=== PATIENT | male | born 2000 | race African-American/Black ===

== ENCOUNTER 2023-03-13 00:35 | Emergency (ER) | payer SELFPAY ==
[2023-03-13 01:20] LABS: Absolute Lymphocytes (CBC) 3.8 K/uL (0.7-4.9); Hematocrit 38.3 % (39.6-49.0); Lymphocytes % 48.9 % (15.3-44.8); MCV 83.6 fL (80-100); MPV 8.5 fL (7.6-11.3); RBC Red Blood Cell Count 4.58 M/uL (4.33-5.43)
[2023-03-13] MEDS ORDERED: NA CHLORIDE 0.9% 1,000 ML ONE (01:23)
[2023-03-13 01:36] LABS: Potassium 3.4 mEq/L (3.5-5.1); Troponin High Sensitivity 3.7 pg/mL (<58.9)
--- NOTE | 2023-03-13 04:52 | ER ---
Nurse's Notes [facility] Name: Iam Connolly Age: 22 yrs Sex: Male : 2000 Arrival Date: 03/13/2023 Time: 00:35 Bed 2 Private MD: Diagnosis: Chest pain, unspecified Presentation: 03/13 00:51 Chief complaint: Patient states: I work all day in the heat and today around noon I vc1 started having chest pain and ever since my chest has been tight. When I was laying down I started feeling short of breath and like I was going to pass out. Coronavirus screen: Vaccine status: Patient reports receiving the 2nd dose of the covid vaccine. [employer] Client denies travel out of the [place] in the last 14 days. At this time, the client does not indicate any symptoms associated with coronavirus-19. Ebola Screen: Patient negative for fever greater than or equal to 101.5 degrees Fahrenheit, and additional compatible Ebola Virus Disease symptoms Patient denies exposure to infectious person. Patient denies travel to an Ebola-affected area in the 21 days before illness onset. No symptoms or risks identified at this time. Initial Sepsis Screen: Does the patient meet any 2 criteria? No. Patient's initial sepsis screen is negative. Does the patient have a suspected source of infection? No. Patient's initial sepsis screen is negative. Risk Assessment: Do you want to hurt yourself or someone else? Patient reports no desire to harm self or others. Onset of symptoms was March 12, 2023 at 12:00. 00:51 Method Of Arrival: Ambulatory vc1 00:51 Acuity: JEWELS 3 vc1 Triage Assessment: 00:55 General: Appears in no apparent distress. uncomfortable, Behavior is calm, cooperative, vc1 appropriate for age. Pain: Complains of pain in chest Pain does not radiate. Pain currently is 8 out of 10 on a pain scale. Quality of pain is described as heavy, sharp, Pain began noon Is continuous. EENT: No deficits noted. No signs and/or symptoms were reported regarding the EENT system. Neuro: Level of Consciousness is awake, alert, obeys commands, Oriented to person, place, time, situation, Appropriate for age. Cardiovascular: Chest pain is described as severe, quality is heaviness, sharp. Respiratory: Reports shortness of breath Airway is patent Respiratory effort is even, unlabored, Respiratory pattern is regular, symmetrical. GI: No deficits noted. No signs and/or symptoms were reported involving the gastrointestinal system. : No deficits noted. No signs and/or symptoms were reported regarding the genitourinary system. Derm: No deficits noted. No signs and/or symptoms reported regarding the dermatologic system. Musculoskeletal: No deficits noted. No signs and/or symptoms reported regarding the musculoskeletal system. Historical: - Allergies: 00:54 No Known Allergies; vc1 - Home Meds: 00:54 None [Active]; vc1 - PMHx: 00:54 None; vc1 - PSHx: 00:54 None; vc1 - Immunization history:: Client reports receiving the 2nd dose of the Covid vaccine. - Social history:: Smoking status: Patient denies any tobacco usage or history of. Screenin:00 [facility] ED Fall Risk Assessment (Adult) History of falling in the last 3 months, jb4 including since admission No falls in past 3 months (0 pts) Confusion or Disorientation No (0 pts) Score/Fall Risk Level 0 - 2 = Low Risk. Abuse screen: Denies threats or abuse. Nutritional screening: No deficits noted. Tuberculosis screening: No symptoms or risk factors identified. Assessment: 01:00 General: Appears in no apparent distress. comfortable, Behavior is calm, cooperative, jb4 appropriate for age. Pain: Denies pain. Neuro: Level of Consciousness is awake, alert, obeys commands, Oriented to person, place, time, situation. Cardiovascular: Patient's skin is warm and dry. Respiratory: Airway is patent Respiratory effort is even, unlabored, Respiratory pattern is regular, symmetrical. GI: No signs and/or symptoms were reported involving the gastrointestinal system. : No signs and/or symptoms were reported regarding the genitourinary system. EENT: No signs and/or symptoms were reported regarding the EENT system. Derm: Skin is intact, Skin is pink, warm \T\ dry. Musculoskeletal: Circulation, motion, and sensation intact. Range of motion: intact in all extremities. 01:41 Reassessment: Patient appears in no apparent distress at this time. Patient and/or jb4 family updated on plan of care and expected duration. Pain level reassessed. Patient is alert, oriented x 3, equal unlabored respirations, skin warm/dry/pink. 03:24 Reassessment: Patient appears in no apparent distress at this time. Patient and/or jb4 family updated on plan of care and expected duration. Pain level reassessed. Patient is alert, oriented x 3, equal unlabored respirations, skin warm/dry/pink. 05:00 Reassessment: Patient appears in no apparent distress at this time. Patient and/or jb4 family updated on plan of care and expected duration. Pain level reassessed. Patient is alert, oriented x 3, equal unlabored respirations, skin warm/dry/pink. Vital Signs: 00:51 BP 159 / 100; Pulse 71; Resp 10; Pulse Ox 100% ; Weight 74.84 kg; Height 5 ft. 10 in. ; vc1 Pain 8/10; 01:41 BP 155 / 80; Pulse 72; Resp 16; Pulse Ox 100% on R/A; jb4 03:24 BP 135 / 61; Pulse 60; Resp 17; Pulse Ox 99% on R/A; jb4 04:45 BP 150 / 83; Pulse 65; Resp 16; Pulse Ox 100% on R/A; jb4 00:51 Body Mass Index 23.67 (74.84 kg, 177.8 cm) vc1 00:51 Pain Scale: Adult vc1 ED Course: 00:38 Patient arrived in ED. vc1 00:38 Gurinder Ruelas PA is PHCP. cp 00:38 Navin Stearns MD is Attending Physician. cp 00:54 Triage completed. vc1 00:55 Arm band placed on right wrist. vc1 01:00 Elver Velasquez, RN is Primary Nurse. jb4 01:30 XRAY Chest (1 view) In Process Unspecified. EDMS 02:55 CT Chest For PE Angio In Process Unspecified. EDMS 05:00 Patient has correct armband on for positive identification. Bed in low position. Call jb4 light in reach. Side rails up X 1. Client placed on continuous cardiac and pulse oximetry monitoring. NIBP monitoring applied. automotive maintenance technician on. 05:00 No provider procedures requiring assistance completed. IV discontinued, intact, jb4 bleeding controlled, No redness/swelling at site. Pressure dressing applied. Administered Medications: 01:19 Drug: NS 0.9% IV 1000 ml Route: IV; Rate: 1 bolus; Site: right antecubital; jb4 03:30 Not Given (Patient Refused): Ketorolac IVP 15 mg IVP once jb4 Outcome: 04:52 Discharge ordered by . rt 05:00 Discharged to home ambulatory. jb4 05:00 Condition: stable 05:00 Discharge instructions given to patient, Instructed on discharge instructions, follow up and referral plans. Demonstrated understanding of instructions, follow-up care. 05:48 Patient left the ED. jb4 Signatures: Dispatcher [employer] EDMS Gurinder Ruelas PA PA cp Bryson, James, RN RN jb4 Diandra Trejo RN RN vc1 Navin Stearns MD MD rt
--- NOTE | 2023-03-13 04:52 | EDPHYS ---
Physician Documentation [facility] Name: Iam Connolly Age: 22 yrs Sex: Male : 2000 Arrival Date: 03/13/2023 Time: 00:35 Bed 2 Private MD: ED Physician Navin Stearns HPI: 03/13 00:55 This 22 yrs old Male presents to ER via Ambulatory with complaints of Chest Pain, SOB, cp Near-syncope. 00:55 The patient or guardian reports chest pain that is located primarily in the anterior cp chest wall. The pain does not radiate. Associated signs and symptoms: Pertinent positives: near-syncope, shortness of breath. The chest pain is described as a pressure. Duration: The patient or guardian reports a single episode, that is still ongoing, and worsening, started about noon yesterday. Historical: - Allergies: 00:54 No Known Allergies; vc1 - Home Meds: 00:54 None [Active]; vc1 - PMHx: 00:54 None; vc1 - PSHx: 00:54 None; vc1 - Immunization history:: Client reports receiving the 2nd dose of the Covid vaccine. - Social history:: Smoking status: Patient denies any tobacco usage or history of. ROS: 01:00 Constitutional: Negative for body aches, chills, fever, poor PO intake. cp 01:00 Eyes: Negative for injury, pain, redness, and discharge. cp 01:00 ENT: Negative for drainage from ear(s), ear pain, sore throat, difficulty swallowing, difficulty handling secretions. 01:00 Cardiovascular: Positive for chest pain, Negative for edema, palpitations. 01:00 Respiratory: Positive for shortness of breath, Negative for cough, wheezing. 01:00 Abdomen/GI: Negative for abdominal pain, nausea, vomiting, and diarrhea. 01:00 Back: Negative for pain at rest, pain with movement. 01:00 Neuro: Positive for near syncope, Negative for altered mental status, dizziness, headache, weakness. 01:00 All other systems are negative. Exam: 01:05 Constitutional: The patient appears in no acute distress, alert, awake, cp non-diaphoretic, non-toxic, well developed, well nourished, uncomfortable. 01:05 Head/Face: Normocephalic, atraumatic. cp 01:05 Eyes: Periorbital structures: appear normal, Conjunctiva: normal, no exudate, no injection, Sclera: no appreciated abnormality, Lids and lashes: appear normal, bilaterally. 01:05 ENT: External ear(s): are unremarkable, Nose: is normal, Mouth: Lips: moist, Oral mucosa: pink and intact, moist, Posterior pharynx: is normal, airway is patent, no erythema, no exudate. 01:05 Chest/axilla: Inspection: normal, Palpation: is normal, no crepitus, no tenderness. 01:05 Cardiovascular: Rate: normal, Rhythm: regular, Pulses: Pulses are 2+ in right radial artery and left radial artery. Heart sounds: murmur, not appreciated, Edema: is not appreciated. 01:05 Respiratory: the patient does not display signs of respiratory distress, Respirations: normal, no use of accessory muscles, no retractions, labored breathing, is not present, Breath sounds: are clear throughout, no decreased breath sounds, no stridor, no wheezing. 01:05 Abdomen/GI: Inspection: abdomen appears normal, Palpation: abdomen is soft and non-tender, in all quadrants. 01:05 Neuro: Orientation: to person, place \T\ time. Mentation: is normal, Motor: moves all fours, strength is normal, Sensation: is normal. Vital Signs: 00:51 BP 159 / 100; Pulse 71; Resp 10; Pulse Ox 100% ; Weight 74.84 kg; Height 5 ft. 10 in. ; vc1 Pain 8/10; 01:41 BP 155 / 80; Pulse 72; Resp 16; Pulse Ox 100% on R/A; jb4 03:24 BP 135 / 61; Pulse 60; Resp 17; Pulse Ox 99% on R/A; jb4 04:45 BP 150 / 83; Pulse 65; Resp 16; Pulse Ox 100% on R/A; jb4 00:51 Body Mass Index 23.67 (74.84 kg, 177.8 cm) vc1 00:51 Pain Scale: Adult vc1 MDM: 00:39 Patient medically screened. 03/13 00:52 Order name: Basic Metabolic Panel; Complete Time: 01:44 cp 03/13 01:44 Interpretation: Normal except: K 3.4; GLUC 140. 03/13 00:52 Order name: CBC with Diff; Complete Time: 01:44 cp 03/13 01:45 Interpretation: Normal except: HGB 12.5; HCT 38.3; CAMPBELL% 40.3; LYM% 48.9. cp 03/13 00:52 Order name: D-Dimer; Complete Time: 01:44 cp 03/13 01:45 Interpretation: Abnormal: D-DIMER 886. 03/13 00:52 Order name: Magnesium; Complete Time: 01:44 cp 03/13 00:52 Order name: Troponin HS; Complete Time: 01:44 cp 03/13 01:45 Interpretation: Troponin HS 3.7; Reviewed. 03/13 00:52 Order name: CK; Complete Time: 01:44 cp 03/13 00:52 Order name: XRAY Chest (1 view) 03/13 01:45 Order name: CT Chest For PE Angio 03/13 00:52 Order name: EKG; Complete Time: 00:52 03/13 00:52 Order name: Cardiac monitoring; Complete Time: 01:13 cp 03/13 00:52 Order name: EKG - Nurse/Tech; Complete Time: 01:13 cp 03/13 00:52 Order name: IV Saline Lock; Complete Time: 01:13 cp 03/13 00:52 Order name: Labs collected and sent; Complete Time: 01:13 cp 03/13 00:52 Order name: O2 Per Protocol; Complete Time: 01:13 cp 03/13 00:52 Order name: O2 Sat Monitoring; Complete Time: 01:13 cp Administered Medications: 01:19 Drug: NS 0.9% IV 1000 ml Route: IV; Rate: 1 bolus; Site: right antecubital; jb4 03:30 Not Given (Patient Refused): Ketorolac IVP 15 mg IVP once jb4 Disposition: 05:01 Co-signature as Attending Physician, Navin Stearns MD I reviewed the patient's care rt provided by Advanced Practice Provider \T\ agree w/ the diagnosis \T\ care plan. I personally saw the pt \T\ performed a substantive portion of the visit, incldng all aspects of the (History/Exam/Medical Decision Making). Symptoms resolved with Toradol, CT angiogram is negative. 1 set of enzymes is sufficient to rule out acute coronary syndrome and a low risk patient with pain going on for more than 12 hours. Suspect musculoskeletal pain. Stable for outpatient care. Disposition Summary: 03/13/23 04:52 Discharge Ordered Location: Home rt Problem: new rt Symptoms: are resolved rt Condition: Stable rt Diagnosis - Chest pain, unspecified rt Followup: rt - With: Private Physician - When: 2 - 3 days - Reason: Discharge Instructions: - Discharge Summary Sheet rt - Nonspecific Chest Pain, Adult rt - Chest Wall Pain rt Forms: - Medication Reconciliation Form rt - Thank You Letter rt - Antibiotic Education rt - Prescription Opioid Use rt - Patient Portal Instructions rt Signatures: Dispatcher [employer] EDMS Gurinder Ruelas PA PA cp Bryson, James RN RN jb4 Diandra Trejo RN RN vc1 Navin Stearns MD MD rt
[2023-03-13 05:56] VITALS: BP 150/83; O2SAT 100
--- NOTE | 2023-03-14 13:13 | EKG ---
Test Date: 2023-03-13 Test Time: 00:46:32 Grease Maker: LILI MEASUREMENT RESULTS: Intervals: Rate: 68 ND: 132 QRSD: 82 QT: 364 QTc: 387 Proctor: P: ND: 132 QRS: 61 T: 73 INTERPRETIVE STATEMENTS: Normal sinus rhythm Normal ECG No previous ECG available for comparison Electronically Signed On 03-14-23 13:11:11 CDT by Luis Peters
--- NOTE | 2023-03-14 18:30 | RAD REPORT ---
EXAM DESCRIPTION: CT CHEST ANGIOGRAPHY WITH IV CONTRAST CLINICAL HISTORY: CHEST PAIN, SOB COMPARISON: None Available TECHNIQUE: Multiple helical axial tomographic images were obtained of the chest following administra tion of intravenous contrast per angiographic protocol. MIP reformatted images were obtained. This exam was performed according to our departmental dose-optimization program, which includes autom ated exposure control, adjustment of the mA and/or kV according to patient size and/or use of iterati ve reconstruction technique. FINDINGS: Thyroid gland: unremarkable. Axilla: unremarkable. Pulmonary arteries: Pulmonary arteries appear patent. No evidence of pulmonary embolism. Aorta: No evidence of aortic dissection or aneurysm. Mediastinum: Unremarkable. No adenopathy. Heart: Heart is normal in size. Lungs/airways: No consolidation. Airways are patent. Pleural spaces: No significant pleural effusion. No pneumothorax. Osseous: Unremarkable. Soft tissues: Unremarkable. Visualized abdomen: Unremarkable. IMPRESSION: No acute intrathoracic abnormality. Electronically signed by Due to temporary technical issues with the PACS/Fluency reporting system, reports are being signed by the in house radiologists without review as a courtesy to insure prompt reporting. The interpreting radiologist is fully responsible for the content of the report.
--- NOTE | 2023-03-14 18:32 | RAD REPORT ---
EXAM DESCRIPTION: XR Chest, 1 View CLINICAL HISTORY: The patient is 22 years old and is Male; CHEST PAIN TECHNIQUE: Frontal view of the chest. COMPARISON: No relevant prior studies available. FINDINGS: LUNGS: Unremarkable. No consolidation. PLEURAL SPACE: Unremarkable. No pneumothorax. HEART: Unremarkable. No cardiomegaly. MEDIASTINUM: Unremarkable. BONES/JOINTS: Unremarkable. UPPER ABDOMEN: Unremarkable as visualized. IMPRESSION: No acute cardiopulmonary process. Electronically signed by: Magaly Mcclellan MD 03/13/2023 2:22 AM CDT Due to temporary technical issues with the PACS/Fluency reporting system, reports are being signed by the in house radiologists without review as a courtesy to insure prompt reporting. The interpreting radiologist is fully responsible for the content of the report.
== END 2023-03-13 05:48 | disposition home or self-care (01) ==
LOC: ER 00:35
DX: R07.89 Other chest pain (principal)
CPT/HCPCS: 36415; 71045; 71275; 80048; 82550; 83735; 84484; 85025; 85379; 93005; 99284; J7030; Q9967